=== PATIENT | female | born 1980 | race Caucasian/White ===

== ENCOUNTER → 2024-04-04 13:41 | Outpatient (REF) | payer BC, SELFPAY | LOC: RAD 13:41 | PROVIDERS: ATTENDING PHYSICIAN Family Medicine | DX: R10.32 Left lower quadrant pain (principal); Z86.718 Personal history of other venous thrombosis and embolism | CPT/HCPCS: 93971 ==

== ENCOUNTER 2024-06-08 18:19 | Emergency (ER) | payer SELFPAY ==
[2024-06-08 18:28] VITALS: BP 157/87
--- NOTE | 2024-06-08 19:31 | ED.GENMED ---
History of Present Illness
General
Chief Complaint: Head Injury
Source: patient
Exam Limitations: none
Time Seen by Provider: 06/08/24 19:20
History of Present Illness
History of Present Illness:
This is a 43 year old female that comes in with getting hit in the head with a picture that fell off the wall. States that she was upstairs working on the computer and sitting the desk. States that a picture just fell of the wall and hit her on top
of the head. States that she had this funny felling on the right side of her face and that is whey she came down. State that she continued working for an hour after this happened. States that she does have a headache for which she took Tylenol for.
Denies any fever, chills, chest pain, SOB, abd pain, nausea, vomiting, diarrhea, dizziness.
Past History
Past History
ED Past Medical History: Other (Migraine headaches, back pain, DVT X 2)
ED Past Surgical History: Gynecological (Right ovarian cyst/tumor removal, Hysterectomy, LEEP, Mastectomy with reconstruction, ) and Orthopedic (Lumbar surgery)
Social History
Tobacco: Non-smoker
Alcohol: Occasional
Personal:
Living: with family
Employment: Employed
Review of Systems
Review of Systems
All Other Systems: ROS reviewed and negative except as documented in HPI and ROS
Constitutional: Reports no symptoms; Denies fever or chills
EENT: Reports no symptoms
Respiratory: Reports no symptoms; Denies cough or trouble breathing
Cardiac: Reports no symptoms; Denies chest pain
ABD/GI: Reports no symptoms; Denies abdominal pain, nausea, vomiting or diarrhea
: Reports no symptoms
Musculoskeletal: Reports no symptoms
Skin: Reports no symptoms
Neurological: Reports headache (with funny feeling on the right sided of her face)
Psychiatric: Reports no symptoms
Phy Exam
General Physical Exam
General Presentation: well appearing and no apparent distress
General age: appears stated age
General Skin: warm and dry
General Habitus: normal
General Mental: alert
General Hydration: appears well hydrated
ENT Exam
ENT Exam: neck supple
Eye Exam
Eye Exam: EOMI
Cardiovascular Exam
Cardiovascular Exam: regular rate/rhythm
Pulmonary Exam
Pulmonary Exam: lungs clear, no respiratory distress, no rales, chest non tender, no crackles, no rhonchi, no wheezing and no cough
Musculoskeletal Exam
Musculoskeletal Exam: full ROM
Skin Exam
Skin Exam: normal color, warm/dry, no rash and no petechia
Course
Orders/Labs/Results
Orders:
Orders
06/08/24 18:34
CT Head W/o Iv Contrast Urgent
Comment:
Reason For Exam: head strike on eliquis
06/08/24 19:21
Acetaminophen [Tylenol] 1,000 mg PO NOW STA
Vital Signs
Initial and Last Documented VS:
Initial Vital Signs
Temp Pulse Resp BP Pulse Ox
98.7 F 69 18 157/87 98
06/08/24 18:28 06/08/24 18:28 06/08/24 18:28 06/08/24 18:28 06/08/24 18:28
Last Documented Vital Signs
Temp Pulse Resp BP Pulse Ox
98.7 F 69 18 157/87 98
06/08/24 18:28 06/08/24 18:28 06/08/24 18:28 06/08/24 18:28 06/08/24 18:28
MDM/Problems Addressed
Differential Diagnosis Includes:
Minor head injury, Subdural hematoma
MDM/Problems Addressed:
This is a 43 year old female that comes in with c/o having a picture fall off the wall and hit her in the head. States that she also has this funny feeling on the right side of her face as the picture may have hit a nerve. States that she has a
headache for which she took Tylenol. Denies any LOC.
Will get CT scan. Explained to patient that the CT scan was normal. Patient to return with headache not relieved by Tylenol, vomiting more then twice or any other concerns.
Chronic conditions affecting care:
On Eliquis
Acute Exacerbation and/or Progression of Chronic Illness:
NA
*Radiology
Radiology exam reviewed: radiology read reviewed (CT head-NO acute intracranial abnormality noted. )
*Pulse Oximetry
Patient hypoxic: no
*EKG
Interpreted by ED Provider?: NA
Rate: EKG- N/A
*Generation Manager Interpretation
Rate: Generation Manager- N/A
*Critical Care Note
Total Time (30-74mins, 75-104mins- exclusive of procedures): Not Applicable
ED Attending Note
-
Portions of this chart may have been created with voice recognition software.� Occasional wrong word or��sound alike� substitutions may have occurred due to the inherent limitations of voice recognition software.
Discharge Plan
Departure
Patient Disposition: Home (Routine Discharge)
Date of Disposition: 06/08/24
Time of Disposition: 19:39
Patient with high blood pressure during this ER visit?: Yes
Condition: Good
Covid-19: Not Applicable
Discharge Problem:
Minor head injury
Instructions: Head Injury in Adults (DC), BLOOD PRESSURE
Prescriptions:
No Action
Pepcid:
20 mg PO BID
Multi Tablet
1 cap PO DAILY
ferrous gluconate 236 MG tablet
236 mg PO DAILY
Colace
1 tab PO DAILY
Referrals:
Sherly Rasmussen, DO [Family Provider] - Call in 1-3 days for appt
Activity Restrictions/Additional Instructions:
As discussed, your CT of the head is normal. Please increase your water intake to 8-8oz glasses daily. You may use Tylenol 1000mg every 6 hours for headache pain. IF YOU HAVE HEADACHE PAIN THAT IS NOT RELIEVED BY TYLENOL, VOMITING MORE THEN TWICE
OR YOU HAVE ANY OTHER CONCERNS PLEASE RETURN TO THE EMERGENCY ROOM.
Interventions
Interventions:
*Risk Screen - Suicide Last Done: 06/08/24 18:28
*General Assessment Last Done: 06/08/24 18:28
*Neglect/Abuse Screening Last Done: 06/08/24 18:28
*ED COVID-19 Vaccine History Last Done: 06/08/24 18:28
ED- Neurological Assessment Last Done: 06/08/24 18:40
ED-Skin Assessment Last Done: 06/08/24 18:40
Discharge Date and Time
Print Language: [id number]
== END 2024-06-08 19:55 | disposition home or self-care (01) ==
LOC: EMR 18:19
PROVIDERS: EMERGENCY PHYSICIAN Emergency Medicine; FAMILY PHYSICIAN Family Medicine
DX: S09.90XA Unspecified injury of head, initial encounter (principal); W20.8XXA Other cause of strike by thrown, projected or falling object, initial encounter; Z86.718 Personal history of other venous thrombosis and embolism; Z79.01 Long term (current) use of anticoagulants
CPT/HCPCS: 99284; 70450

== ENCOUNTER → 2024-10-27 10:19 | Outpatient (REF) | payer BC, SELFPAY ==
[2024-10-27 13:27] LABS: CA 125 < 5.5 U/mL (0-35)
== END ==
LOC: REG 10:19
PROVIDERS: ATTENDING PHYSICIAN Obstetrics & Gynecology
DX: Z87.42 Personal history of other diseases of the female genital tract (principal)
CPT/HCPCS: 36415; 86304